=== PATIENT | female | born 1995 | race Caucasian/White ===

== ENCOUNTER 2020-04-16 19:16 | Emergency (ER) | payer MEDICAID ==
--- NOTE | 2020-04-16 20:29 | EDM.PDOCBH ---
ED HPI GENERAL MEDICAL PROBLEM - General Chief Complaint: Drug or Alcohol Abuse Stated Complaint: SEEING SPOTS/LIGHTHEADED Time Seen by Provider: 04/16/20 20:11 Source of Information: Reports: Patient History Limitations: Reports: No Limitations - History of Present Illness INITIAL COMMENTS - FREE TEXT/NARRATIVE: Mrs. Maldonado is a pleasant 24-year-old woman who now presents the ED seeking inpatient treatment for heroin withdrawal. She states that she ordinarily injects about 1 g of heroin per day, every 2 hours, with her last injection 1 week ago, this past , 04/09/2020. For the past 3 to 4 days, she has had symptoms of rapid palpitations, diaphoresis, increased anxiety, and insomnia. No nausea, vomiting, or diarrhea. The patient states that she started using heroin when she was 15 years old. She has also been injecting methamphetamine since 2016, with her most recent use of that on 04/09/2020, as well. She states that she has been to inpatient drug treatment only once, in December, in [place], for 4 days. She did not attend outpatient treatment. She also states that she was on methadone for about 18 months between 2018 and 2019. She states that she moved to this area just 3 days ago. She did not contact [facility] prior to coming to the ED. Here in the ED, the patient's initial BP is found to be elevated at 162/103, with tachycardia of 107 bpm. She is afebrile, saturating 95% on room air. Prior to 4 days ago, the patient denies having a recent fever, chills, sore throat, ear pain, nasal or sinus congestion, cough, dyspnea, chest pain, palpitations, nausea, vomiting, constipation, diarrhea, abdominal pain, urinary symptoms, recent weight gain or weight loss, recent bloody bowel movements or black bowel movements, recent joint aches, headaches, or rashes. The patient does not have a PCP. She has not received an influenza vaccine this season, and declined an offer to receive one here in the ED. - Related Data Allergies Allergy/AdvReac Type Severity Reaction Status Date / Time No Known Allergies Allergy Verified 04/16/20 20:05 Home Meds: Home Meds . [No Known Home Meds] 04/16/20 [History] Past Medical History Psychiatric History: Reports: Addiction (heroin, methamphetamine), Anxiety (untreated), Depression (untreated) Social & Family History - Tobacco Use Tobacco Use Status *Q: Current Every Day Tobacco User Years of Tobacco use: 10 Packs/Tins Daily: 1 - Alcohol Use Alcohol Use History: No - Recreational Drug Use Recreational Drug Use: Yes Drug Use in Last 12 Months: Yes Recreational Drug Type: Reports: Heroin (last injected 04/09/2020), Marijuana/H rick (smokes on occasion, last 04/16/2020), Methamphetamine (last injected 04/09/2020) - Living Situation & Occupation Living situation: Reports: , with Spouse, with Family (5 yr old son) Occupation: Unemployed ED ROS GENERAL - Review of Systems Review Of Systems: Comprehensive ROS is negative, except as noted in HPI. ED EXAM, BEHAVIORAL HEALTH - Physical Exam Exam: See Below Exam Limited By: No Limitations General Appearance: Alert, WD/WN, No Apparent Distress Eye Exam: Bilateral Eye: EOMI, Normal Inspection Ears: Normal External Exam, Hearing Grossly Normal Nose: Normal Inspection Throat/Mouth: Normal Inspection, Normal Lips, Normal Voice, No Airway Compromise Head: Atraumatic, Normocephalic Neck: Normal Inspection, Full Range of Motion Respiratory/Chest: No Respiratory Distress, Lungs Clear, Normal Breath Sounds, No Accessory Muscle Use Cardiovascular: Normal Peripheral Pulses, No Edema, No Gallop, No JVD, No Murmur, No Rub, Tachycardia (regular) GI/Abdominal: Normal Bowel Sounds, Soft, Non-Tender, No Organomegaly, No Distention, No Abnormal Bruit, No Mass Back Exam: Normal Inspection, Full Range of Motion, NT Extremities: Normal Inspection, Normal Range of Motion, No Pedal Edema, Normal Capillary Refill Neurological: Alert, Normal Cognition, No Motor/Sensory Deficits, Oriented x 3 Psychiatric: Other (Somewhat anxious, hypervigilant) Skin Exam: Warm, Dry, Intact, Normal color, No rash #1 Interpretation EKG Date: 04/16/20 Time: 20:51 Rhythm: NSR Rate (Beats/Min): 92 [place]: Normal P-Wave: Present QRS: Normal ST-T: Normal QT: Normal Comparison: NA - No Prior EKG COURSE, BEHAVIORAL HEALTH COMP - Course Vital Signs: Last Vital Signs Temp 36.2 C 04/16/20 20:01 Pulse 107 H 04/16/20 20:01 Resp 18 04/16/20 20:01 BP 153/108 H 04/16/20 21:05 Pulse Ox 95 04/16/20 20:01 Orders, Labs, Meds: Active Orders 24 hr Category Date Time Status EKG Documentation Completion [RC] STAT Care 04/16/20 20:32 Active CORONAVIRUS COVID-19 ROSANA [[facility]] Stat Lab 04/16/20 22:15 Ordered Laboratory Tests 04/16/20 04/16/20 04/16/20 Range/Units 20:47 20:47 21:40 WBC 9.83 (3.98-10.04) K/mm3 RBC 4.79 (3.98-5.22) M/mm3 Hgb 14.1 (11.2-15.7) gm/dl Hct 44.2 (34.1-44.9) % MCV 92.3 (79.4-94.8) fl MCH 29.4 (25.6-32.2) pg MCHC 31.9 L (32.2-35.5) g/dl RDW Std Deviation 47.9 H (36.4-46.3) fL Plt Count 347 (182-369) K/mm3 MPV 9.3 L (9.4-12.3) fl Neutrophils % (Manual) 62 H (40-60) % Band Neutrophils % 0 (0-10) % Lymphocytes % (Manual) 31 (20-40) % Atypical Lymphs % 0 % Monocytes % (Manual) 4 (2-10) % Eosinophils % (Manual) 2 (0.7-5.8) % Basophils % (Manual) 1 (0.1-1.2) Platelet Estimate Adequate Plt Morphology Comment Normal RBC Morph Comment Normal Sodium 145 (136-145) mEq/L Potassium 4.4 (3.5-5.1) mEq/L Chloride 105 (98-107) mEq/L Carbon Dioxide 29 (21-32) mEq/L Anion Gap 15.4 H (5-15) BUN 15 (7-18) mg/dL Creatinine 0.9 (0.55-1.02) mg/dL Est Cr Clr Drug Dosing TNP Estimated GFR (MDRD) > 60 (>60) mL/min BUN/Creatinine Ratio 16.7 (14-18) Glucose 101 (74-106) mg/dL Calcium 9.8 (8.5-10.1) mg/dL Magnesium 2.5 H (1.8-2.4) mg/dl Total Bilirubin 0.3 (0.2-1.0) mg/dL AST 18 (15-37) U/L ALT 15 (14-59) U/L Alkaline Phosphatase 57 (46-116) U/L Total Protein 7.9 (6.4-8.2) g/dl Albumin 3.8 (3.4-5.0) g/dl Globulin 4.1 gm/dL Albumin/Globulin Ratio 0.9 L (1-2) Urine HCG, Qual Negative (NEGATIVE) Urine Opiates Screen (UGDCIK=276) Ur Buprenorphine Scrn (CUTOFF=10) Ur Oxycodone Screen (KHZ6EN=425) Urine Methadone Screen (ZCOFZK=153) Ur Propoxyphene Screen (YXCATA=519) Ur Barbiturates Screen (UEPACY=493) Ur Tricyclics Screen (CPWUVA=950) Ur Phencyclidine Scrn (CUTOFF=25) Ur Amphetamine Screen (QSJUVV=236) U Methamphetamines Scrn (LSUDGP=309) U Benzodiazepines Scrn (YEWWWH=160) U Cocaine Metab Screen (EXEXJZ=497) U Marijuana (THC) Screen (CUTOFF=50) Ethyl Alcohol 0.00 (0.00) gm% 04/16/20 Range/Units 21:40 WBC (3.98-10.04) K/mm3 RBC (3.98-5.22) M/mm3 Hgb (11.2-15.7) gm/dl Hct (34.1-44.9) % MCV (79.4-94.8) fl MCH (25.6-32.2) pg MCHC (32.2-35.5) g/dl RDW Std Deviation (36.4-46.3) fL Plt Count (182-369) K/mm3 MPV (9.4-12.3) fl Neutrophils % (Manual) (40-60) % Band Neutrophils % (0-10) % Lymphocytes % (Manual) (20-40) % Atypical Lymphs % % Monocytes % (Manual) (2-10) % Eosinophils % (Manual) (0.7-5.8) % Basophils % (Manual) (0.1-1.2) Platelet Estimate Plt Morphology Comment RBC Morph Comment Sodium (136-145) mEq/L Potassium (3.5-5.1) mEq/L Chloride (98-107) mEq/L Carbon Dioxide (21-32) mEq/L Anion Gap (5-15) BUN (7-18) mg/dL Creatinine (0.55-1.02) mg/dL Est Cr Clr Drug Dosing Estimated GFR (MDRD) (>60) mL/min BUN/Creatinine Ratio (14-18) Glucose (74-106) mg/dL Calcium (8.5-10.1) mg/dL Magnesium (1.8-2.4) mg/dl Total Bilirubin (0.2-1.0) mg/dL AST (15-37) U/L ALT (14-59) U/L Alkaline Phosphatase (46-116) U/L Total Protein (6.4-8.2) g/dl Albumin (3.4-5.0) g/dl Globulin gm/dL Albumin/Globulin Ratio (1-2) Urine HCG, Qual (NEGATIVE) Urine Opiates Screen Negative (YGNQSI=612) Ur Buprenorphine Scrn Negative (CUTOFF=10) Ur Oxycodone Screen Negative (MRT6CY=632) Urine Methadone Screen Negative (DNBPTW=323) Ur Propoxyphene Screen Negative (GPZUZY=702) Ur Barbiturates Screen Negative (BZZWJB=757) Ur Tricyclics Screen Negative (VITIZW=860) Ur Phencyclidine Scrn Negative (CUTOFF=25) Ur Amphetamine Screen Negative (TNTOTV=274) U Methamphetamines Scrn Negative (XZAIUD=461) U Benzodiazepines Scrn Negative (IKOIWR=714) U Cocaine Metab Screen Negative (BMXGBO=184) U Marijuana (THC) Screen Presumptive positive H (CUTOFF=50) Ethyl Alcohol (0.00) gm% Medications Discontinued Medications Generic Name Dose Route Start Last Admin Trade Name Freq PRN Reason Stop Dose Admin Clonidine HCl 0.1 mg 04/16/20 20:41 04/16/20 21:05 Catapres PO 04/16/20 20:42 0.1 mg ONETIME ONE Administration Medical Clearance: 04/16/20 20:25 As above, the patient has been using heroin on and off since she was 15 years old, with her most recent use 1 week ago today. She would like to go to [facility], but did not contact them prior to coming to the ED, therefore we do not know if a bed is available. In the meantime, she has been experiencing withdrawal symptoms, including palpitations, sweatiness, insomnia, and increased anxiety. Her initial BP is found to be somewhat elevated, and she is slightly tachycardic, however, her physical exam is unremarkable. Before I order a medical clearance panel, we will contact [facility] to see if they have a bed available. If so, we can proceed with a medical clearance, if not, then we can save her that expense. 04/16/20 20:30 Notified that [facility] reports that they do have beds available, therefore I will order a medical clearance panel. 04/16/20 20:42 Notified by Landy CAMERON that the patient is requesting clonidine and Seroquel. Clonidine is a well recognized non-opioid agonist pharmaceutical agent for the treatment of opioid withdraw, however, Seroquel is not. For patients with opiate withdraw who are experiencing insomnia, we typically prescribe diphenhydramine, or something similar. I have ordered clonidine 0.1 mg po, however, I will need to discuss the situation with [facility] before prescribing Seroquel. 04/16/20 22:09 The patient's CBC, CMP, magnesium level, EtOH level, and urine test are all within normal limits/negative. Her urine drug screen is positive for marijuana only. 04/16/20 22:16 Case discussed with Tanna at [facility]. Landy CAMERON will need to do a [id number] report, and, in the meantime, Tanna will come to the ED to evaluate the patient and go over their rules and expectations. While not required, they would like it if we were to perform a swab for the SARS-CoV-2 virus, therefore I have ordered that. 04/16/20 22:21 Notified by Landy CAMERON that the patient stepped out of the ED about 15 or 20 minutes ago to smoke a cigarette, and that she has not returned. Landy CAMERON went out to the parking lot, and cannot find her. She suspects that the patient eloped. We will notify Tanna to not come to the ED, but will notify her again if the patient returns. Departure - Departure Time of Disposition: 22:22 Disposition: Eloped 07 Condition: Good Clinical Impression: Heroin withdrawal - Discharge Information *PRESCRIPTION DRUG MONITORING PROGRAM REVIEWED*: No *COPY OF PRESCRIPTION DRUG MONITORING REPORT IN PATIENT NAVEEN: No Referrals: PCP,None [Primary Care Provider] - Forms: ED Department Discharge Sepsis Event Note (ED) - Evaluation Sepsis Screening Result: No Definite Risk - Focused Exam Vital Signs: Vital Signs Temp Pulse Resp BP BP Pulse Ox 04/16/20 21:05 153/108 H 04/16/20 20:01 36.2 C 107 H 18 162/103 H 95 - My Orders Last 24 Hours: My Active Orders 04/16/20 20:32 EKG Documentation Completion [RC] STAT 04/16/20 22:15 CORONAVIRUS COVID-19 ROSANA [[facility]] Stat - Assessment/Plan Last 24 Hours: My Active Orders 04/16/20 20:32 EKG Documentation Completion [RC] STAT 04/16/20 22:15 CORONAVIRUS COVID-19 ROSANA [[facility]] Stat
[2020-04-16] MEDS ORDERED: cloNIDine 0.1 MG Tab PO ONE (20:41)
== END 2020-04-16 22:30 | disposition left against medical advice (07) ==
LOC: JD.ED 19:16
DX: F11.23 Opioid dependence with withdrawal (principal); Z72.0 Tobacco use
CPT/HCPCS: 36415; 80053; 80179; 80306; 81025; 83735; 85007; 85027; 93005; 99284; A9270; 93010

== ENCOUNTER 2020-10-09 16:36 | Emergency (ER) | payer MEDICAID ==
[2020-10-09] MEDS ORDERED: Ondansetron 4 MG/2 ML SDV IVPUSH ONE (17:26)
[2020-10-09] MEDS ORDERED: Sodium Chloride 0.9% 1,000 ML IV ONE (17:26)
[2020-10-09] MEDS ORDERED: Sodium Chloride 0.9% 10 ML Syringe FLUSH PRN (17:26)
== END 2020-10-09 17:45 ==
LOC: JD.ED 16:36
DX: O21.9 Vomiting of pregnancy, unspecified (principal); Z53.21 Procedure and treatment not carried out due to patient leaving prior to being seen by health care provider